=== PATIENT | male | born 1955 | race Caucasian/White ===

== ENCOUNTER 2017-06-23 21:20 | Emergency (ER) | payer OTHER ==
[~2017-06-23] VITALS: Ht 193 cm; Wt 189.6 kg
[~2017-06-23 21:20] MED LIST: ACE325 PO; AMI200 PO; AML5; ASPI-292 PO; CALC-515 PO; CARV25TA77 PO; CEP500 PO; DIG125 PO; DIG25 PO; DILT-145 PO; DILT-23 PO; DILT240T12 PO; DILT30TA35 PO; DOC100 PO; FISH OIL1 CAP PO; FLUT16SP20 NS; FUR20 PO; LIS5 PO; LISI5TAB25 PO; LOR5 PO; MAGN30TA5 PO; METH-543 PO; MOMR; NITR-105 PO; OXYC-865 PO; OXYGEN INH; PANT40TA65 PO; PER PO; POT10 PO; POT20; PRE20 PO; RAM8 PO; RAMI5CAP63 PO; RIV10 PO; SOT80 PO; SPIR1TAB26 PO; SPIR25TA78 PO; TUM500 PO; UBID100C48 PO; WAR75 PO; WARF-18 PO; WARF10TA29 PO; ZOLP-350 PO
--- NOTE | 2017-06-23 21:39 | ER Report ---
History and Physical Time Seen By MD: 21:30 Hx. of Stated Complaint: PATIENT STATES HE WAS GETTING A HEART RATE OF 125, PATIENT HAS HX OF AFIB. PATIENT TOOK A DILITIAZEM AT ABOUT 1640, THEN THE RATE CAME DOWN, BUT THEN IT CAME RIGHT BACK UP THIS EVENING. HPI/ROS 62-year-old male with multiple medical problems including atrial fibrillation. Also with an ICD and pacemaker. Patient takes multiple medications daily for rate control including diltiazem, coreg, and sotolol. Also has a prescription for diltiazem 30 mg tabs to take when he feels himself going into A. fib with RVR. He has been cardioverted multiple times at [facility]. He states that other than the tachycardia he feels well and at his baseline. No chest pain, no shortness of breath, no nausea vomiting or diarrhea. He took 1 dose of diltiazem earlier today when he felt the A. fib with RVR. He states that his heart rate improved but then he became tachycardic again later tonight and was afraid to take an additional dose of diltiazem. Remainder of the 14 system rev: Yes Allergies: Coded Allergies: Penicillins (Verified Allergy, Intermediate, RASH, 06/23/17) Shellfish (Verified Allergy, Intermediate, BURNING IN MOUTH, REDNESS OF FACE, 06/23/17) adhesive tape (Verified Allergy, Intermediate, RED PADILLA, 06/23/17) Home Meds Active Scripts Methocarbamol (ROBAXIN-750) 750 Mg Tablet, 1 TAB PO TID Y for muscle spasm relief, #20 Prov:ANTONY LAM DO 05/28/17 Oxycodone Hcl/Acetaminophen (PERCOCET 5-325 MG TABLET) 1 Each Tablet, 1 EACH PO Q4-6H Y for PAIN, #12 Prov:ANTONY LAM DO 05/28/17 Diltiazem Hcl (DILTIAZEM HCL) 30 Mg Tablet, 30 MG PO Q6-8H Y for heart rate over 100, #30 Prov:ANTONY LAM DO 05/28/17 Diltiazem Hcl (CARDIZEM CD) 180 Mg Cap.er.24h, 180 MG PO DAILY, #30 CAPSULE 5 Refills Prov:IRINA JONES MD 10/24/15 Reported Medications Pantoprazole Sodium (PANTOPRAZOLE SODIUM) 40 Mg Tablet., 40 MG PO QDAY, TAB.SR 01/28/17 Rivaroxaban (XARELTO 10 MG TAB (OR EQUIV)) 10 Mg Tablet, 20 MG PO QDAY, TAB 10/24/15 Sotalol Hcl (SOTALOL) 80 Mg Tab, 80 MG PO BID 06/12/14 Lisinopril (LISINOPRIL) 5 Mg Tablet, 5 MG PO BID 06/12/14 Zolpidem Tartrate (AMBIEN) 10 Mg Tablet, 1 TAB PO QHS TAKE ONE TABLET BY MOUTH AT BED TIME 09/22/13 Oxygen (Oxygen) 2 L Inha, 3 L INH PRN, 0 Refills 06/09/11 Spironolactone (Spironolactone) 25 Mg Tablet, 25 MG PO DAILY, 0 Refills 06/09/11 [place]-3 Fatty Acids (Fish Oil) 1 Cap Capsule, 1 CAP PO DAILY, 0 Refills 06/09/11 Mometasone Furoate (Nasonex) 17 Gm [place], 0 NA QDAY, 0 Refills SPRAY 2 SPRAYS IN EACH NOSTRIL 06/09/11 Carvedilol (Coreg) 25 Mg Tablet, 25 MG PO TID, 0 Refills 06/09/11 Reviewed Nurses Notes: Yes Old Medical Records Reviewed: Yes Hx Smoking: No Smoking Status: Never Smoker Exposure to Second Hand Smoke?: No Constitutional Vital Sign - Last 24 Hours 06/23/17 06/23/17 06/23/17 06/23/17 21:23 21:23 21:35 21:50 Pulse 122 116 88 Resp 24 22 26 B/P (MAP) 130/111 Pulse Ox 94 94 96 O2 Delivery Nasal Cannula O2 Flow Rate 3.0 06/23/17 06/23/17 06/23/17 06/23/17 22:05 22:10 22:25 22:40 Pulse 93 99 98 103 Resp 10 9 29 10 Pulse Ox 95 96 95 96 06/23/17 06/23/17 06/23/17 06/23/17 22:45 23:00 23:15 23:30 Pulse 100 101 56 86 Resp 9 28 11 7 Pulse Ox 96 96 97 96 Physical Exam General Appearance: The patient is alert, has no immediate need for airway protection and no signs of toxicity. Eyes: Pupils equal and round no pallor or injection. ENT, Mouth: Mucous membranes are moist. Respiratory: There are no retractions, lungs are clear to auscultation. Cardiovascular: Regular rate and rhythm. Gastrointestinal: Abdomen is soft and non tender, no masses, bowel sounds normal. Skin: Warm and dry, no rashes. Musculoskeletal: Neck is supple non tender. Extremities are nontender, nonswollen and have full range of motion. DIFFERENTIAL DIAGNOSIS: After history and physical exam differential diagnosis was considered for electrolyte abnormality, PE, CO, afib with rvr Medical Decision Making Data Points Result Diagram: 06/23/17215106/23/172151 Laboratory Hematology Test 06/23/17 21:52 Red Blood Count 4.96 M/uL (4.00-5.60) Mean Corpuscular Volume 86.0 fL (80.0-96.0) Mean Corpuscular Hemoglobin 29.2 pg (26.0-33.0) Mean Corpuscular Hemoglobin Concent 34.0 g/dL (32.0-36.0) Red Cell Distribution Width 13.9 % (11.5-14.5) Mean Platelet Volume 10.1 fL (7.2-11.1) Neutrophils (%) (Auto) 73.5 % (39.4-72.5) Lymphocytes (%) (Auto) 17.9 % (17.6-49.6) Monocytes (%) (Auto) 6.5 % (4.1-12.4) Eosinophils (%) (Auto) 0.9 % (0.4-6.7) Basophils (%) (Auto) 1.2 % (0.3-1.4) Nucleated RBC Relative Count (auto) 0.0 /100WBC Neutrophils # (Auto) 9.2 K/uL (2.0-7.4) Lymphocytes # (Auto) 2.3 K/uL (1.3-3.6) Monocytes # (Auto) 0.8 K/uL (0.3-1.0) Eosinophils # (Auto) 0.1 K/uL (0.0-0.5) Basophils # (Auto) 0.2 K/uL (0.0-0.1) Nucleated RBC Absolute Count (auto) 0.00 K/uL Sodium Level 136 mmol/L (137-145) Potassium Level 4.2 mmol/L (3.5-5.0) Chloride Level 98 mmol/L (98-107) Carbon Dioxide Level 28 mmol/L (22-30) Blood Urea Nitrogen 21 mg/dl (9-21) Creatinine 0.90 mg/dl (0.66-1.25) Glomerular Filtration Rate Calc > 60.0 Random Glucose 156 mg/dl (75-110) Calcium Level 9.3 mg/dl (8.4-10.2) Total Bilirubin 0.5 mg/dl (0.2-1.3) Aspartate Amino Transf (AST/SGOT) 33 U/L (0-35) Alanine Aminotransferase (ALT/SGPT) 36 U/L (0-56) Alkaline Phosphatase 72 U/L (0-126) Total Protein 7.7 gm/dl (6.3-8.2) Albumin 4.0 g/dl (3.5-5.0) Chemistry Test 06/23/17 21:52 White Blood Count 12.5 k/uL (4.5-11.0) Red Blood Count 4.96 M/uL (4.00-5.60) Hemoglobin 14.5 g/dL (14.0-18.0) Hematocrit 42.7 % (42.0-52.0) Mean Corpuscular Volume 86.0 fL (80.0-96.0) Mean Corpuscular Hemoglobin 29.2 pg (26.0-33.0) Mean Corpuscular Hemoglobin Concent 34.0 g/dL (32.0-36.0) Red Cell Distribution Width 13.9 % (11.5-14.5) Platelet Count 178 K/uL (150-450) Mean Platelet Volume 10.1 fL (7.2-11.1) Neutrophils (%) (Auto) 73.5 % (39.4-72.5) Lymphocytes (%) (Auto) 17.9 % (17.6-49.6) Monocytes (%) (Auto) 6.5 % (4.1-12.4) Eosinophils (%) (Auto) 0.9 % (0.4-6.7) Basophils (%) (Auto) 1.2 % (0.3-1.4) Nucleated RBC Relative Count (auto) 0.0 /100WBC Neutrophils # (Auto) 9.2 K/uL (2.0-7.4) Lymphocytes # (Auto) 2.3 K/uL (1.3-3.6) Monocytes # (Auto) 0.8 K/uL (0.3-1.0) Eosinophils # (Auto) 0.1 K/uL (0.0-0.5) Basophils # (Auto) 0.2 K/uL (0.0-0.1) Nucleated RBC Absolute Count (auto) 0.00 K/uL Glomerular Filtration Rate Calc > 60.0 Calcium Level 9.3 mg/dl (8.4-10.2) Total Bilirubin 0.5 mg/dl (0.2-1.3) Aspartate Amino Transf (AST/SGOT) 33 U/L (0-35) Alanine Aminotransferase (ALT/SGPT) 36 U/L (0-56) Alkaline Phosphatase 72 U/L (0-126) Total Protein 7.7 gm/dl (6.3-8.2) Albumin 4.0 g/dl (3.5-5.0) EKG/Imaging EKG Interpretation 12 lead EKG: Rhythm:atrial fibrillation with RVR [place]: normal QRS: RBBB ST segments: non specific changes Monitor Interpretation: Atrial Fibrillation ED Course/Re-evaluation ED Course Patient with known intermittent atrial fibrillation presents to the emergency department in atrial fibrillation with RVR. He takes Xeralto daily. He also takes multiple rate controlling meds. Took 1 dose of diltiazem 30 mg by mouth earlier this afternoon when he felt himself going into A. fib with tachycardia. His symptoms improved but then returned early this evening, and he was afraid to take more. He was has no chest pain, no shortness of breath, no nausea vomiting diarrhea. He otherwise feels at his baseline. His electrolytes are within normal limits. He was given 60 mg of diltiazem by mouth and his heart rate now remains in the 80s and 90s. 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 Decision to Disposition Date: Jun 24, 2017 Decision to Disposition Time: 00:04 Depart Departure Latest Vital Signs Vital Signs Date Time Temp Pulse Resp B/P (MAP) Pulse Ox O2 Delivery O2 Flow Rate FiO2 06/23/17 23:30 86 7 96 06/23/17 21:23 3.0 06/23/17 21:23 130/111 Nasal Cannula Impression: Primary Impression: Atrial fibrillation Condition: Improved Disposition: HOME OR SELF-CARE Referrals: AUGUSTO RENNER DO (PCP) Patient Instructions: A-fib (Atrial Fibrillation) (ED) Problem Qualifiers Primary Impression: Atrial fibrillation Atrial fibrillation type: paroxysmal Qualified Codes: I48.0 - Paroxysmal atrial fibrillation AIME WELSH MD Jun 23, 2017 21:39
[2017-06-23] MEDS ORDERED: DILTIAZEM 5 MG/ML 5ML IVPUSH IVP ONE (21:50)
--- NOTE | 2017-06-23 21:50 | EKG ---
FACILITY: [facility] - [place] PATIENT NAME: SOHAIL RIVERA : [id number] MR: [id number] V: [id number] EXAM DATE: ORDERING PHYSICIAN: AIME WELSH TECHNOLOGIST: IVAN Garsia Reason : CARDIAC Blood Pressure : / mmHG Vent. Rate : 107 BPM Atrial Rate : 107 BPM P-R Int : 000 ms QRS Dur : 114 ms QT Int : 350 ms P-R-T Axes : 000 032 -26 degrees QTc Int : 467 ms Atrial fibrillation with PVC's Right bundle branch block ST and T wave abnormality, consider inferior ischemia Abnormal ECG When compared with ECG of 28-MAY-2017 04:34, Now there is no atrial pacing Confirmed by RAY SIDDIQI ([id number]) on 06/24/2017 8:00:16 AM Referred By: Confirmed By:RAY SIDDIQI
[2017-06-23 21:59] LABS: PLATELET COUNT, AUTOMATED 178 K/uL (150-450)
[2017-06-23] MEDS ORDERED: DILTIAZEM IR 30 MG TAB PO ONE ×2 (22:35→23:40)
--- NOTE | 2017-06-23 22:47 | RADIOLOGY IMAGING REPORT ---
FACILITY: [facility] - [place] PATIENT NAME: Aamir Negron : 1955 MR: [id number] V: [id number] EXAM DATE: ORDERING PHYSICIAN: AIME WELSH TECHNOLOGIST: [facility] Patient: Aamir Negron : 1955 Visit/Account:[id number] Date of Sevice: 06/23/2017 CHEST PA AND LAT History: Atrial fibrillation. Chest pain. Comparison 06/26/2016. FINDINGS: Elevation of the left hemidiaphragm. Left-sided cardiac pacer in place. Mild cardiomegaly and mediast inal contour stable. No consolidation, effusion or pneumothorax. IMPRESSION: No evidence of acute cardiopulmonary disease. Report Dictated By: José Manuel Douglas MD at 06/23/2017 10:41 PM Report E-Signed By: José Manuel Douglas MD at 06/23/2017 10:42 PM WSN:[id number]
[2017-06-24 00:07] VITALS: BP 128/88
== END 2017-06-24 00:40 | disposition home or self-care (01) ==
LOC: ER 21:35
DX: I48.0 Paroxysmal atrial fibrillation (principal)
CPT/HCPCS: 36415; 71046; 82040; 82247; 82310; 82374; 82435; 82565; 82947; 84075; 84132; 84155; 84295; 84450; 84460; 84520; 85025; 93005; 99283

== ENCOUNTER → 2017-08-04 | Outpatient (REF) | payer OTHER ==
[~2017-08-04] MED LIST changes: -WARF-18 PO; +WARF5TAB23 PO
[2017-08-04 15:58] LABS: PLATELET COUNT, AUTOMATED 176 K/uL (150-450)
== END ==
LOC: ZZSTITCHES 15:40
PROVIDERS: ATTEND Physician Assistant
DX: M79.642 Pain in left hand (principal); R60.0 Localized edema
CPT/HCPCS: 84550; 85025

== ENCOUNTER → 2017-08-12 | Outpatient (REF) | payer OTHER | LOC: ZZSENDIN 11:44 | PROVIDERS: ATTEND Physician Assistant | DX: R31.9 Hematuria, unspecified (principal) | CPT/HCPCS: 81001 ==

== ENCOUNTER → 2017-08-12 | Outpatient (CLI) | payer OTHER ==
--- NOTE | 2017-08-12 16:32 | RADIOLOGY IMAGING REPORT ---
FACILITY: [facility] PATIENT NAME: Aamir Negron : 1955 MR: [id number] V: [id number] EXAM DATE: ORDERING PHYSICIAN: LYNN MOORE TECHNOLOGIST: Location[place] [facility] [place] Patient: Amair Negron : 1955 Visit/Account:[id number] Date of Sevice: 08/12/2017 GALLBLADDER HISTORY: Right upper quadrant pain. COMPARISON: None. FINDINGS: Limited exam secondary to patient body habitus. Gallbladder: Unremarkable; no stones or sludge. Liver: Grossly unremarkable. Common duct: Within normal limits, 5 mm diameter. Pancreas: Obscured by bowel and not able to be visualized. Right kidney: Two simple and benign appearing right renal cortical cysts, each measuring 3.6 cm. No hydronephrosis. Upper abdominal aorta and IVC: Patent. Ascites: None visualized. IMPRESSION: Several simple and benign appearing right renal cortical cysts, otherwise unremarkable ultrasound rig ht upper quadrant without findings identified to explain patient's reported symptoms. Report Dictated By: Toni Oropeza MD at 08/12/2017 4:24 PM Report E-Signed By: Toni Oropeza MD at 08/12/2017 4:27 PM WSN:[id number]
== END ==
LOC: US 15:16
PROVIDERS: ATTEND Physician Assistant
DX: N28.1 Cyst of kidney, acquired (principal)
CPT/HCPCS: 76705

== ENCOUNTER → 2017-08-26 | Outpatient (REF) | payer OTHER | LOC: ZZSENDIN 16:47 | PROVIDERS: ATTEND Physician Assistant | DX: R31.9 Hematuria, unspecified (principal) | CPT/HCPCS: 81001 ==

== ENCOUNTER 2018-09-07 00:13 | Emergency (ER) | payer OTHER ==
[~2018-09-07 00:13] MED LIST changes: +FURO-45 PO; +[UNRECOGNIZED DRUG - CODE] PO
[2018-09-07] MEDS ORDERED: OXYGENHOME INH (00:28)
[2018-09-07] MEDS ORDERED: GLYCOPYRROLATE 0.2MG/ML 1 ML INJ IVP ONE (00:40)
[2018-09-07] MEDS ORDERED: NS(*) 0.9% 500 ML BAG 500 ML IV ONE (00:40)
--- NOTE | 2018-09-07 00:47 | ER Report ---
History and Physical Time Seen By MD: 00:40 Hx. of Stated Complaint: PATIENT REPORTS "CLEAR LIQUID DIARRHEA" THAT STARTED 24-48 HOURS PRIOR. DENIES ABDOMINAL PAIN OR N/V. STATES THAT HE IS NOW ON HIS LAST DAY OF A 7 DAY COURSE OF ABX FOR AN UPPER RESPIRATORY INFECTION. HPI/ROS CHIEF COMPLAINT: Diarrhea HISTORY OF PRESENT ILLNESS: 63-year-old male has been on 10 days of Septra Molina edema for sinus infection he has one more day left but has had 2 days of what he describes as nearly constant watery diarrhea. He has not had bloody or black stools. He has not had fever, chills, abdominal pain, chest pain, nausea, vomi ting. He has never had C. difficile. He has attempted Imodium both yesterday and today without relief. He has tried probiotics without relief. He feels slightly lightheaded, no heaache. No recent travel REVIEW OF SYSTEMS: Constitutional: No fever, no chills. Eyes: No discharge. ENT: No sore throat. Cardiovascular: No chest pain, no palpitations. Respiratory: No cough, no shortness of breath. Gastrointestinal: No abdominal pain, no vomiting. Genitourinary: no dysuria Musculoskeletal: No back pain. Skin: No rashes. Neurological: No headache. Remainder of the 14 system rev: Yes Allergies: Coded Allergies: Penicillins (Verified Allergy, Intermediate, RASH, 09/07/18) Shellfish (Verified Allergy, Intermediate, BURNING IN MOUTH, REDNESS OF FACE, 09/07/18) adhesive tape (Verified Allergy, Intermediate, RED PADILLA, 09/07/18) Home Meds Active Scripts Diltiazem Hcl (CARDIZEM CD) 180 Mg Cap.er.24h, 180 MG PO DAILY, #30 CAPSULE 5 Refills Prov:IRINA JONES MD 10/24/15 Reported Medications Oxygen (OXYGEN) Inha, 4 L INH, L 09/07/18 Furosemide (FUROSEMIDE) 20 Mg Tablet, 1 TAB PO DAILY, TAB 01/17/18 Pantoprazole Sodium (PANTOPRAZOLE SODIUM) 40 Mg Tablet.dr, 40 MG PO QDAY, TAB.SR 01/28/17 Rivaroxaban (XARELTO 10 MG TAB (OR EQUIV)) 10 Mg Tablet, 20 MG PO QDAY, TAB 10/24/15 Zolpidem Tartrate (AMBIEN) 10 Mg Tablet, 1 TAB PO QHS TAKE ONE TABLET BY MOUTH AT BED TIME 09/22/13 [place]-3 Fatty Acids (Fish Oil) 1 Cap Capsule, 1 CAP PO DAILY, 0 Refills 06/09/11 Mometasone Furoate (Nasonex) 17 Gm [place], 0 NA QDAY, 0 Refills SPRAY 2 SPRAYS IN EACH NOSTRIL 06/09/11 Carvedilol (Coreg) 25 Mg Tablet, 25 MG PO TID, 0 Refills 06/09/11 Discontinued Reported Medications Sotalol Hcl (BETAPACE) 240 Mg Tablet, 240 MG PO BID 01/17/18 Oxygen (Oxygen) 2 L Inha, 3 L INH PRN, 0 Refills 06/09/11 Discontinued Scripts Methocarbamol (ROBAXIN-750) 750 Mg Tablet, 1 TAB PO TID PRN for muscle spasm relief, #20 Prov:ANTONY LAM DO 05/28/17 Oxycodone Hcl/Acetaminophen (PERCOCET 5-325 MG TABLET) 1 Each Tablet, 1 EACH PO Q4-6H PRN for PAIN, #12 Prov:ANTONY LAM DO 05/28/17 Reviewed Nurses Notes: Yes Hx Smoking: No Smoking Status: Never Smoker Exposure to Second Hand Smoke?: No Constitutional Vital Sign - Last 24 Hours 09/07/18 09/07/18 09/07/18 09/07/18 00:17 00:27 00:40 00:43 Temp 98.1 Pulse 79 79 Resp 17 B/P (MAP) 149/121 149/121 (130) 95/65 (75) Pulse Ox 69 96 O2 Delivery Nasal Cannula Nasal Cannula O2 Flow Rate 4 09/07/18 09/07/18 09/07/18 09/07/18 00:48 01:13 01:18 01:38 Pulse 98 86 B/P (MAP) 97/55 (69) 96/56 (69) Pulse Ox 96 96 Intake and Output 09/06/18 09/06/18 09/07/18 15:00 23:00 07:00 Intake Total 500 ml Balance 500 ml Physical Exam General Appearance: The patient is alert, has no immediate need for airway protection and no signs of toxicity. Eyes: Pupils equal and round no pallor or injection. ENT, Mouth: Mucous membranes are moist. Respiratory: There are no retractions, lungs are clear to auscultation with exception of occ insp wheeze left lung Cardiovascular: irreg rhythm, controlled rate. No m/r/g Gastrointestinal: Abdomen is soft and non tender, no masses, bowel sounds hyperactive Neurological: alert, oriented, no gross neurologic deficit Skin: Warm and dry, no rashes. Musculoskeletal: Extremities are nontender; pt has L > R LE edema (which he states is baseline) and have full range of motion. DIFFERENTIAL DIAGNOSIS: After history and physical exam differential diagnosis was considered for c dif, infectious/invasive diarrhea, acute abdomen/obstruction, or other emergent etiology. Medical Decision Making Data Points Result Diagram: 09/07/187 09/07/18 0037 Laboratory Hematology Test 09/07/18 00:37 09/07/18 01:11 Red Blood Count 4.87 M/uL (4.00-5.60) Mean Corpuscular Volume 87.2 fL (80.0-96.0) Mean Corpuscular Hemoglobin 29.7 pg (26.0-33.0) Mean Corpuscular Hemoglobin Concent 34.0 g/dL (32.0-36.0) Red Cell Distribution Width 14.2 % (11.5-14.5) Mean Platelet Volume 9.7 fL (7.2-11.1) Neutrophils (%) (Auto) 79.7 % (39.4-72.5) Lymphocytes (%) (Auto) 8.1 % (17.6-49.6) Monocytes (%) (Auto) 10.4 % (4.1-12.4) Eosinophils (%) (Auto) 1.2 % (0.4-6.7) Basophils (%) (Auto) 0.6 % (0.3-1.4) Nucleated RBC Relative Count (auto) 0.0 /100WBC Neutrophils # (Auto) 13.2 K/uL (2.0-7.4) Lymphocytes # (Auto) 1.3 K/uL (1.3-3.6) Monocytes # (Auto) 1.7 K/uL (0.3-1.0) Eosinophils # (Auto) 0.2 K/uL (0.0-0.5) Basophils # (Auto) 0.1 K/uL (0.0-0.1) Nucleated RBC Absolute Count (auto) 0.00 K/uL Sodium Level 131 mmol/L (137-145) Potassium Level 3.4 mmol/L (3.5-5.0) Chloride Level 94 mmol/L (98-107) Carbon Dioxide Level 30 mmol/L (22-30) Blood Urea Nitrogen 21 mg/dl (9-21) Creatinine 1.10 mg/dl (0.66-1.25) Glomerular Filtration Rate Calc > 60.0 Random Glucose 116 mg/dl (75-110) Calcium Level 9.0 mg/dl (8.4-10.2) Total Bilirubin 0.7 mg/dl (0.2-1.3) Aspartate Amino Transf (AST/SGOT) 50 U/L (0-35) Alanine Aminotransferase (ALT/SGPT) 33 U/L (0-56) Alkaline Phosphatase 90 U/L (0-126) Total Protein 7.7 g/dl (6.3-8.2) Albumin 4.0 g/dl (3.5-5.0) Clostridium Difficile Toxin A & B Negative Clostridium difficile Antigen Negative Chemistry Test 09/07/18 00:37 09/07/18 01:11 White Blood Count 16.6 k/uL (4.5-11.0) Red Blood Count 4.87 M/uL (4.00-5.60) Hemoglobin 14.5 g/dL (14.0-18.0) Hematocrit 42.5 % (42.0-52.0) Mean Corpuscular Volume 87.2 fL (80.0-96.0) Mean Corpuscular Hemoglobin 29.7 pg (26.0-33.0) Mean Corpuscular Hemoglobin Concent 34.0 g/dL (32.0-36.0) Red Cell Distribution Width 14.2 % (11.5-14.5) Platelet Count 166 K/uL (150-450) Mean Platelet Volume 9.7 fL (7.2-11.1) Neutrophils (%) (Auto) 79.7 % (39.4-72.5) Lymphocytes (%) (Auto) 8.1 % (17.6-49.6) Monocytes (%) (Auto) 10.4 % (4.1-12.4) Eosinophils (%) (Auto) 1.2 % (0.4-6.7) Basophils (%) (Auto) 0.6 % (0.3-1.4) Nucleated RBC Relative Count (auto) 0.0 /100WBC Neutrophils # (Auto) 13.2 K/uL (2.0-7.4) Lymphocytes # (Auto) 1.3 K/uL (1.3-3.6) Monocytes # (Auto) 1.7 K/uL (0.3-1.0) Eosinophils # (Auto) 0.2 K/uL (0.0-0.5) Basophils # (Auto) 0.1 K/uL (0.0-0.1) Nucleated RBC Absolute Count (auto) 0.00 K/uL Glomerular Filtration Rate Calc > 60.0 Calcium Level 9.0 mg/dl (8.4-10.2) Total Bilirubin 0.7 mg/dl (0.2-1.3) Aspartate Amino Transf (AST/SGOT) 50 U/L (0-35) Alanine Aminotransferase (ALT/SGPT) 33 U/L (0-56) Alkaline Phosphatase 90 U/L (0-126) Total Protein 7.7 g/dl (6.3-8.2) Albumin 4.0 g/dl (3.5-5.0) Clostridium Difficile Toxin A & B Negative Clostridium difficile Antigen Negative Microbiology Microbiology Date/Time Source Procedure Growth Status 09/07/18 01:11 Stool Gram Stain - Final Resulted 09/07/18 01:11 Stool Stool Culture Pending Resulted ED Course/Re-evaluation ED Course Patient presents with voluminous, watery stool. Low likelihood for infectious or invasive disease, appears well. Labs on generally unremarkable, C. difficile negative, stool culture pending. Patient feels improved is tolerating by mouth and comfortable for discharge. Decision to Disposition Date: Sep 07, 2018 Decision to Disposition Time: 01:57 Depart Departure Latest Vital Signs Vital Signs Date Time Temp Pulse Resp B/P (MAP) Pulse Ox O2 Delivery O2 Flow Rate FiO2 09/07/18 01:38 96/56 (69) 09/07/18 01:18 86 96 09/07/18 00:43 Nasal Cannula 4 09/07/18 00:17 98.1 17 Impression: Primary Impression: Diarrhea Condition: Improved Disposition: HOME OR SELF-CARE Patient Instructions: Acute Diarrhea (ED) Additional Instructions: Continue to stay hydrated, you may use Imodium for up to one more day. We will c all you if your stool culture shows an infectious disease that requires treatment. Please return if you are not tolerating fluids, feeling worse, or for any concerns. Problem Qualifiers Primary Impression: Diarrhea Diarrhea type: unspecified type Qualified Codes: R19.7 - Diarrhea, unspecified AYALA WELSH MD Sep 07, 2018 00:47
[2018-09-07 01:07] LABS: PLATELET COUNT, AUTOMATED 166 K/uL (150-450)
[2018-09-07 01:38] VITALS: BP 96/56
== END 2018-09-07 02:04 | disposition home or self-care (01) ==
LOC: ER 00:26
DX: R19.7 Diarrhea, unspecified (principal)
CPT/HCPCS: 85025; 87045; 87205; 87324; 87449; 96361; 96374; 99283; J3490; J7040; 82040; 82247; 82310; 82374; 82435; 82565; 82947; 84075; 84132; 84155; 84295; 84450; 84460; 84520

== ENCOUNTER → 2018-10-02 | Outpatient (CLI) | payer OTHER ==
[~2018-10-02] MED LIST changes: +OXYGENHOME INH
--- NOTE | 2018-10-02 17:03 | RADIOLOGY IMAGING REPORT ---
FACILITY: [facility] - [place] PATIENT NAME: Aamir Negron : 1955 MR: [id number] V: [id number] EXAM DATE: ORDERING PHYSICIAN: KADI ROMERO TECHNOLOGIST: Location: [facility] Patient: Aamir Negron : 1955 Visit/Account:[id number] Date of Sevice: 10/02/2018 US VENOUS LOWER EXT RT HISTORY: Pain and bruising COMPARISON: None. FINDINGS: Grayscale, duplex and color Doppler interrogation of the right lower extremity deep veins from common femoral vein to proximal calf was completed. The greater saphenous vein in the proximal thigh was ev aluated using similar technique. Common femoral vein - Negative. Femoral vein - Negative. Deep femoral vein - Negative. Popliteal vein - Negative. Visualized deep calf veins - Negative. Popliteal fossa: Negative. Greater saphenous vein in the proximal thigh: Negative. IMPRESSION: Negative right lower extremity venous ultrasound Report Dictated By: Alex Hartley at 10/02/2018 4:59 PM Report E-Signed By: Alex Hartley at 10/02/2018 4:59 PM [id number]
== END ==
LOC: US 06:57
PROVIDERS: ATTEND Family Medicine
DX: M79.661 Pain in right lower leg (principal)

== ENCOUNTER → 2018-11-10 | Outpatient (CLI) | payer OTHER | LOC: LAB 15:08 | PROVIDERS: ATTEND Internal Medicine | DX: I50.9 Heart failure, unspecified (principal) | CPT/HCPCS: 36415; 82310; 82374; 82435; 82565; 82947; 83735; 83880; 84132; 84295; 84520 ==